=== PATIENT | male | born 1995 ===

== ENCOUNTER 2017-02-13 21:48 | Emergency (ER) | payer SELFPAY ==
[2017-02-13] MEDS ORDERED: Ketorolac Tromethamine 60 MG/2 ML VIAL ONE (22:29)
--- NOTE | 2017-02-13 23:08 | RAD ---
THREE VIEWS RIGHT FOOT 02/13/17 COMPARISON: None. HISTORY: Injured right foot at work. FINDINGS: No displaced fracture or evidence of dislocation seen. No radiopaque foreign body or subcutaneous gas . IMPRESSION: No acute findings. POS: [facility]
== END 2017-02-13 23:39 | disposition home or self-care (01) ==
LOC: ERS 21:48
DX: S90.211A Contusion of right great toe with damage to nail, initial encounter (principal); W22.8XXA Striking against or struck by other objects, initial encounter; Y92.69 Other specified industrial and construction area as the place of occurrence of the external cause
CPT/HCPCS: 96372; J1885